=== PATIENT | female | born 1985 | race Caucasian/White ===

== ENCOUNTER → 2016-08-29 | Outpatient (CLI) | payer BC ==
[~2016-08-29] MED LIST: BCPILLS PO; MULT-506 PO
--- NOTE | 2016-08-29 09:31 | DIAGNOSTIC IMAGING REPORT ---
KUB CLINICAL HISTORY: N20.0 [id number] COMPARISON STUDY: 02/08/2016 FINDINGS: There is no pathologic bowel dilatation. The renal shadows are partially obscured overlying bowel gas and fecal material. No definite renal calculi are visualized. There are multiple nonspecific pelvic basin calcifications. IMPRESSION: No urinary tract calculi are visualized on conventional radiographic imaging Electronically signed by: Prasanna Ramirez M.D. 08/29/2016 9:30 AM Dictated Date/Time: 08/29/2016 9:29 AM
== END | disposition home or self-care (01) ==
LOC: C.RADBC 08:42
PROVIDERS: ATTEND Nurse Practitioner Family
DX: N20.0 Calculus of kidney (principal)

== ENCOUNTER → 2017-06-07 | Outpatient (CLI) | payer BC ==
[2017-06-11 02:05] LABS: CHLAMYDIA TRACH RNA*** NOT DETECTED (NOT DETECTED); GC (NEIS GONORRHOEAE)RNA** NOT DETECTED (NOT DETECTED)
== END | disposition home or self-care (01) ==
LOC: C.LABSPEC 13:50
PROVIDERS: ATTEND Obstetrics & Gynecology
DX: L29.8 Other pruritus (principal)

== ENCOUNTER → 2017-06-27 | Outpatient (CLI) | payer BC ==
--- NOTE | 2017-07-05 13:14 | DIAGNOSTIC IMAGING REPORT ---
KUB CLINICAL HISTORY: 31 years-old Female presenting with N20.0 [id number]. TECHNIQUE: Single supine view of the abdomen was obtained. COMPARISON: CT from 08/04/2015 and plain radiograph from 08/29/2016. FINDINGS: Nonobstructive bowel gas pattern. No gross pneumoperitoneum. Allowing for bowel gas and stool, punctate calcification in the right kidney has not changed in position. No radiographically evident ureteral or left renal calculi. Stable distribution of pelvic phleboliths. Osseous structures normal. IMPRESSION: 1. Unchanged punctate right renal calculus. Electronically signed by: Alfred Hernandez M.D. 07/05/2017 1:13 PM Dictated Date/Time: 07/05/2017 1:10 PM
== END | disposition home or self-care (01) ==
LOC: C.LAB 17:17
PROVIDERS: ATTEND Nurse Practitioner Adult Health
DX: R30.0 Dysuria (principal)

== ENCOUNTER → 2017-07-05 | Outpatient (CLI) | payer BC ==
--- NOTE | 2017-07-05 13:14 | DIAGNOSTIC IMAGING REPORT ---
KUB CLINICAL HISTORY: 31 years-old Female presenting with N20.0 [id number]. TECHNIQUE: Single supine view of the abdomen was obtained. COMPARISON: CT from 08/04/2015 and plain radiograph from 08/29/2016. FINDINGS: Nonobstructive bowel gas pattern. No gross pneumoperitoneum. Allowing for bowel gas and stool, punctate calcification in the right kidney has not changed in position. No radiographically evident ureteral or left renal calculi. Stable distribution of pelvic phleboliths. Osseous structures normal. IMPRESSION: 1. Unchanged punctate right renal calculus. Electronically signed by: Alfred Hernandez M.D. 07/05/2017 1:13 PM Dictated Date/Time: 07/05/2017 1:10 PM
== END | disposition home or self-care (01) ==
LOC: C.RAD 12:24
PROVIDERS: ATTEND Urology
DX: N20.0 Calculus of kidney (principal)

== ENCOUNTER → 2017-09-24 | Outpatient (CLI) | payer BC | END | disposition home or self-care (01) | LOC: C.LABSPEC 17:10 | PROVIDERS: ATTEND Nurse Practitioner Adult Health | DX: R30.0 Dysuria (principal) ==